=== PATIENT | female | born 2000 | race American Indian/Alaskan Native ===

== ENCOUNTER 2020-09-09 12:44 | Emergency (ER) | payer SELFPAY ==
[2020-09-09 14:37] LABS: Basophils % (Auto) 0.4 % (0.0-1.8); Eosinophils # (Auto) 0.1 K/mm3 (0.0-0.4); Eosinophils % (Auto) 0.6 % (0.0-4.3); Hematocrit 41.1 % (30.3-42.9); Lymphocytes % (Auto) 35.5 % (13.4-35.0); Mean Corpuscular HGB Conc 34 % (30-34); Mean Corpuscular Volume 92 fl (79-97); Monocytes # (Auto) 0.5 K/mm3 (0.0-0.8); Platelet Count 296 K/mm3 (140-440); Red Blood Count 4.48 M/mm3 (3.65-5.03); Red Cell Distribution Width 12.3 % (13.2-15.2)
[2020-09-09 14:56] LABS: BUN/Creatinine Ratio 6; Blood Urea Nitrogen 5 mg/dL (7-17); Calcium 9.3 mg/dL (8.4-10.2); Hemolysis Index 8
--- NOTE | 2020-09-09 19:04 | Emergency Department Report ---
<CRISTOBAL NEWBY III - Last Filed: 09/09/20 21:33> ED Psych HPI - General Chief Complaint: Psych Stated Complaint: MENTAL HEALTH Time Seen by Provider: 09/09/20 19:00 Source: patient Mode of arrival: Ambulatory - History of Present Illness Initial Comments: Patient is a 20-year-old female that presents emergency room with complaints of suicidal ideations, self-harm and depression anxiety. Patient states she has had depression anxiety for many years. Patient states she is feeling really depressed lately. Patient states that her father came to her house and saw the cuts on her arm prior to the hospital to be evaluated. Patient states that she is a cutter and she gets emotional relief when she cuts her forearms. Patient states she was not cutting her forearms with the intent of killing herself. Patient states lately she has been having suicidal ideations but does not have a plan. Patient states she has a history of a suicide attempt by cutting her wrist about 2 or 3 years ago. Patient states she has been very emotional. Patient states has been looking to get some psychiatric help but has not seen a psychiatrist. Patient denies recent travel. Patient denies recent international travel. Patient denies exposure to the novel coronavirus. Patient denies sick contacts. Patient denies fever and chills. Patient denies cough. Patient denies diarrhea. Patient denies coming in contact with anybody with symptoms of the novel coronavirus. MD Complaint: suicidal ideation, feels depressed -: Sudden Associated Psychiatric Symptoms: depression, suicidal ideation, racing thoughts History of same: Yes Quality: constant Improves With: none Worsens With: none Context: significant life stressor Associated Symptoms: denies: confusion, headache, shortness of breath, nausea, vomiting, syncope, insomnia If Self Harm: admits thoughts of - Related Data Previous Rx's Medication Instructions Recorded Last Taken Type Sulfamethoxazole/Trimethoprim 1 each PO BID 10 Days #20 tablet 09/09/20 Unknown Rx [Bactrim DS TAB] Sertraline [Zoloft] 25 mg PO QDAY #30 tab 09/10/20 Unknown Rx hydrOXYzine PAMOATE [Vistaril] 25 mg PO BID PRN #60 capsule 09/10/20 Unknown Rx traZODone [Desyrel] 50 mg PO QHS #30 tab 09/10/20 Unknown Rx Allergies Allergy/AdvReac Type Severity Reaction Status Date / Time No Known Allergies Allergy Unverified 09/09/20 12:58 ED Review of Systems Constitutional: denies: chills, fever Eyes: denies: eye pain, eye discharge, vision change ENT: denies: ear pain, throat pain Respiratory: denies: cough, shortness of breath, wheezing Cardiovascular: denies: chest pain, palpitations Endocrine: no symptoms reported Gastrointestinal: denies: abdominal pain, nausea, diarrhea Genitourinary: denies: urgency, dysuria, discharge Musculoskeletal: denies: back pain, joint swelling, arthralgia Skin: denies: rash, lesions Neurological: denies: headache, weakness, paresthesias Psychiatric: as per HPI, anxiety, depression, suicidal thoughts. denies: auditory hallucinations, visual hallucinations, homicidal thoughts Hematological/Lymphatic: denies: easy bleeding, easy bruising ED Past Medical Hx - Past Medical History Previous Medical History?: No - Surgical History Past Surgical History?: No - Medications Home Medications: Home Medications Medication Instructions Recorded Confirmed Last Taken Type Sulfamethoxazole/Trimethoprim 1 each PO BID 10 Days #20 tablet 09/09/20 Unknown Rx [Bactrim DS TAB] Sertraline [Zoloft] 25 mg PO QDAY #30 tab 09/10/20 Unknown Rx hydrOXYzine PAMOATE [Vistaril] 25 mg PO BID PRN #60 capsule 09/10/20 Unknown Rx traZODone [Desyrel] 50 mg PO QHS #30 tab 09/10/20 Unknown Rx ED Physical Exam - General Limitations: No Limitations General appearance: alert, in no apparent distress - Head Head exam: Present: atraumatic, normocephalic - Eye Eye exam: Present: normal appearance - ENT ENT exam: Present: mucous membranes moist - Neck Neck exam: Present: normal inspection - Respiratory Respiratory exam: Present: normal lung sounds bilaterally. Absent: respiratory distress - Cardiovascular Cardiovascular Exam: Present: regular rate, normal rhythm. Absent: systolic murmur, diastolic murmur, rubs, gallop - GI/Abdominal GI/Abdominal exam: Present: soft, normal bowel sounds - Extremities Exam Extremities exam: Present: other (Superficial abrasions and lacerations noted to the right forearm. None of the lacerations or abrasions are deep enough to require sutures.) - Back Exam Back exam: Present: normal inspection - Neurological Exam Neurological exam: Present: alert, oriented X3 - Psychiatric Psychiatric exam: Present: depressed, flat affect - Skin Skin exam: Present: warm, dry, normal color, abrasion, other (Superficial abrasions and lacerations noted to the right forearm. Bleeding is controlled. Sterile dressing reapplied after evaluation.). Absent: rash ED Course - Reevaluation(s) Reevaluation #1: Patient is cooperative. During initial evaluation, the patient became emotional when I discussed suicide and suicidal ideations. We will have mental health see the patient. 09/09/20 19:03 Reevaluation #2: I discussed the case with mental health and the mental health wants the patient placed on a 1013 for suicide ideation with a plan. Mother states that they had a long discussion and the patient finally came clean and said that she was actually trying to hurt herself and commit suicide and that the cutting is a suicide attempt. Patient placed on a 1013. Order placed in the system. 09/09/20 20:03 Reevaluation #3: Patient is medically cleared. Patient will remain in the ER as an ER hold and on a 1013 until the patient is cleared from a psychiatric standpoint from our mental health and psychiatry team. 09/09/20 21:34 ED Medical Decision Making - Lab Data Result diagrams: 09/09/20 14:24 09/09/20 14:24 - Medical Decision Making Patient is a 20-year-old female that presents emergency room with complaints of cutting her forearm. Patient initially said that she was only cutting her forearm because she is a cutter. However while discussing with the patient the patient became emotional every time I brought up the idea of suicidal ideations and the patient spoke with mental health spa manager/esthetician and finally told her that she was having suicidal ideations and that her self-harm was a suicide attempt. Patient was then placed on a 1013. Patient had labs done which were essentially unremarkable except for a UTI. Patient given oral antibiotics. Patient is medically cleared and patient's final disposition will come from our psychiatry team. - Differential Diagnosis Depression, suicidal ideation, self harm ED Disposition Clinical Impression: Self-harming behavior UTI (urinary tract infection) Qualifiers: Urinary tract infection type: acute cystitis Hematuria presence: with hematuria Qualified Code(s): N30.01 - Acute cystitis with hematuria Disposition: [id number]/TX-[id number] PSY HOSP/PSY UNIT Is pt being admited?: No Does the pt Need Aspirin: No Condition: Stable Instructions: Urinary Tract Infection, Adult, [id number], Self-Harming Behavior Information Additional Instructions: Professional and Agency Contacts To help [facility] (07/01) [place] Crisis Line: Suicide Prevention Line: Crisis Text Line: Text START to 514359 Emergency: 911 Outpatient COMMUNITY Behavioral Health Resources: [place]: [facility] [address], [place] [address] [place]: [facility] [address] [place] [address] Saturday thru Saturday - 8am - 5pm Call to schedule an assessment for mental health and substance abuse programs [facility] Address: [address] [place] [address] Saturday thru Saturday- 7am-2pm [facility] Address: [address] [place] [address] Saturday thru Saturday: 8:30AM-5PM OUTPATIENT MENTAL HEALTH RESOURCES [facility], [facility] Joana Syed MD: [address] [place] [address], [address] [place] [address] [place] [address] [place] [facility]: [facility] [address] [place] [address] [place] [address] [phone] [facility]: [facility]: [address] [facility] [address] [facility] [place] [address] [facility] [address] [place] [facility]: Forest Carrizales MD: [address] [facility] [id number] [facility]: [address] [place] [address] [phone] [place] CRISIS AND ACCESS LINE: Prescriptions: traZODone [Desyrel] 50 mg PO QHS #30 tab Sulfamethoxazole/Trimethoprim [Bactrim DS TAB] 1 each PO BID 10 Days #20 tablet hydrOXYzine PAMOATE [Vistaril] 25 mg PO BID PRN #60 capsule PRN Reason: Anxiety Sertraline [Zoloft] 25 mg PO QDAY #30 tab Referrals: PRIMARY CARE, [Primary Care Provider] - 2-3 Days Time of Disposition: 21:36 <CHRIS PATE - Last Filed: 09/10/20 13:18> ED Review of Systems ROS: Stated complaint: MENTAL HEALTH Other details as noted in HPI ED Course Vital Signs 09/09/20 09/09/20 12:58 19:15 Temperature 98.9 F 98 F Pulse Rate 64 82 Respiratory 20 18 Rate Blood Pressure 136/91 122/84 O2 Sat by Pulse 100 99 Oximetry - Reevaluation(s) Reevaluation #4: 09/10/20 13:17 Patient seen and evaluated by psychiatry. 1013 rescinded. They have determined that patient is stable for discharge home. I spoke with patient and confirmed that she denies any suicidal ideations. Patient states she is eager to be discharged and started on her therapy. Will discharge at this time. ED Medical Decision Making - Lab Data Result diagrams: 09/09/20 14:24 09/09/20 14:24 Critical care attestation.: If time is entered above; I have spent that time in minutes in the direct care of this critically ill patient, excluding procedure time.
[2020-09-09 20:25] LABS: Bacteria,Urine 1+ /HPF (Negative); Bilirubin,Urine NEG (Negative); Blood,Urine SM (Negative); Color,Urine Yellow (Yellow); Mucus,Urine 3+ /HPF; Urobilinogen,Urine < 2.0 mg/dL (<2.0)
[2020-09-09 20:30] LABS: Amphetamine Screen,Urine Negative; Benzodiazepines Screen,Urine Negative; Cocaine Screen,Urine Negative; Methadone Screen,Urine Negative; Opiate Screen,Urine Negative
[2020-09-09 20:45] LABS: Cannabinoid Screen,Urine Positive
[2020-09-09 20:53] VITALS: BP 122/84
[2020-09-09] MEDS ORDERED: LORazepam 1 MG TAB PO ONE (21:03)
[2020-09-10 01:09] LABS: HCG Qualitative,Urine Negative (Negative)
--- NOTE | 2020-09-10 12:00 | Consultation ---
History of Present Illness - Reason for Consult Consult date: 09/10/20 Reason for consult: self mutilator - History of Present Psychiatric Illness Per ED Note: Patient is a 20-year-old female that presents emergency room with complaints of suicidal ideations, self-harm and depression anxiety. Patient states she has had depression anxiety for many years. Patient states she is feeling really depressed lately. Patient states that her father came to her house and saw the cuts on her arm prior to the hospital to be evaluated. Patient states that she is a cutter and she gets emotional relief when she cuts her forearms. Patient states she was not cutting her forearms with the intent of killing herself. Patient states lately she has been having suicidal ideations but does not have a plan. Patient states she has a history of a suicide attempt by cutting her wrist about 2 or 3 years ago. Patient states she has been very emotional. Patient states has been looking to get some psychiatric help but has not seen a psychiatrist. During my interview with 20y/o Carol Taylor, she is sitting up in bed. She is calm, cooperative and polite. When asked what brought her to the hospital, she says "depression, and I'm a cutter." The patient says she's been cutting since she was "about 9." She says "I don't do this to kill myself. It just relieves pain and stress." She says "I'm not suicidal, although I have had thoughts before on and off." The patient also denies any fear of harming herself or anyone if she was to discharge home. The patient says her stressor is her mom and her sister. She says she no longer lives in the home but states her mom says hurtful things sometimes. The patient says "I've been wanting to see a therapist but my mom never took me to get help." She says, "I just need counseling where I can openly discuss my feelings." The patient says she "never really knew where to go to get resources, so this is really why I needed to come here because I need resources for therapy and medication." She denies any illicit drug use outside of THC, alcohol or nicotine. She says she sleeps at times and at times she doesn't sleep well. The patient states she "feels much better talking to you and getting out my feelings." Spoke to the patient's "." She says the patient doesn't have a good relationship with her mother and allows that to make her upset over the things her mom says. She says the patient does cut but she doesn't do it to , she just needs help with her feelings. She says she is comfortable with the person going home with her and the patient's dad. PAST PSYCHIATRIC HISTORY Diagnoses: Depression, self mutilator Suicide attempts or Self-harm behavior: Yes Prior psychiatric hospitalizations: Denies Substance Abuse history: Denies Previous psychiatric medications tried: Denies Outpatient treatment: Denies PAST MEDICAL HISTORY: None reported Family Psychiatric History: None reported or documented SOCIAL HISTORY Marital Status: "" Living Arrangements: With dad and significant other Employment Status: Unemployed Access to guns/weapons: Denies Education: high school History of Abuse: Denies Legal History: None reported REVIEW OF SYSTEMS Constitutional: Negative for weight loss ENT: Negative for stridor Respiratory: Negative for cough or hemoptysis All other systems reviewed and are negative MENTAL STATUS EXAMINATION General Appearance and Behavior: Age appropriate, good hygiene, not wearing appropriate clothes, good eye contact, calm, cooperative and polite Cooperation: cooperative Psychomotor Behavior: Psychomotor normal Mood: "much better" Affect and affective range: congruent with stated mood Thought Process: Goal directed Thought Content: optimism Speech: normal rate and volume Suicidal Ideation: Denies Homicidal Ideation: Denies Hallucinations: Denies Delusions: None elicited Impulse Control: Impaired Insight and Judgment: Limited Memory: Limited Attention: Divided attention impaired Orientation: Alert Assessment and Plan (1) Major Depressive Disorder (2) Generalized Anxiety Disorder Treatment Plan D/c 1013 Zoloft 25mg po daily Vistaril 25mg po BID prn anxiety Trazodone 50mg po qhs The patient is to get first dose of meds prior to leaving. Benefits and possible SE were explained to patient. She verbalizes understanding. Risks, benefits and alternatives of medications discussed with the patient, questions answered and consent obtained from patient. PSYCHOTHERAPY: Supportive psychotherapy provided MEDICAL: Per primary team DELIRIUM PRECAUTIONS: Please re-orient patient frequently, keep lights on during the day, and minimize benzodiazepines and opiates as these medications could worsen patient's confusion. MERCURY CRACKING TESTER: Defer to primary DISPOSITION: Do Not Recommend acute inpatient psychiatric hospitalization at this time. The elevator tender is to give the patient resources for CBT, psychiatry and medication assistance programs. She is to follow up with outpatient psych or primary in 7 to 14 days upon discharge FOLLOW-UP: Will sign off The elevator tender to give the patient safety plan, and resources. Thank you for the consult. Please contact with any questions and/or concerns Case discussed with Dr. Dolan who agrees with current disposition Medications and Allergies Allergies Allergy/AdvReac Type Severity Reaction Status Date / Time No Known Allergies Allergy Unverified 09/09/20 12:58 Home Medications Medication Instructions Recorded Confirmed Last Taken Type Sulfamethoxazole/Trimethoprim 1 each PO BID 10 Days #20 tablet 09/09/20 Unknown Rx [Bactrim DS TAB] Sertraline [Zoloft] 25 mg PO QDAY #30 tab 09/10/20 Unknown Rx hydrOXYzine PAMOATE [Vistaril] 25 mg PO BID PRN #60 capsule 09/10/20 Unknown Rx traZODone [Desyrel] 50 mg PO QHS #30 tab 09/10/20 Unknown Rx Active Meds: Active Medications Lorazepam (Lorazepam 1 Mg Tab) 1 mg PO ONCE ONE Stop: 09/09/20 21:04 Last Admin: 09/09/20 21:14 Dose: 1 mg Documented by: Mental Status Exam - Vital signs Last Vital Signs Temp 98 F 09/09/20 19:15 Pulse 82 09/09/20 19:15 Resp 18 09/09/20 19:15 BP 122/84 09/09/20 19:15 Pulse Ox 99 09/09/20 19:15 Results Result Diagrams: 09/09/20 14:24 09/09/20 14:24 Abnormal lab results 09/09/20 09/09/20 09/09/20 Range/Units 14:24 14:24 14:24 RDW (13.2-15.2) % Lymph % (Auto) (13.4-35.0) % Chloride 107.2 H (98-107) mmol/L BUN 5 L (7-17) mg/dL Urine WBC (Auto) (0.0-6.0) /HPF Salicylates < 0.3 L (2.8-20.0) mg/dL Acetaminophen 5.0 L (10.0-30.0) ug/mL 03/26/21 03/26/21 Range/Units 14:24 Unknown RDW 12.3 L (13.2-15.2) % Lymph % (Auto) 35.5 H (13.4-35.0) % Chloride (98-107) mmol/L BUN (7-17) mg/dL Urine WBC (Auto) 16.0 H (0.0-6.0) /HPF Salicylates (2.8-20.0) mg/dL Acetaminophen (10.0-30.0) ug/mL All other labs normal.
[2020-09-10] MEDS ORDERED: hydrOXYzine PAMOATE 25 MG CAP PO ONE (12:15)
[2020-09-10] MEDS ORDERED: SERTRALINE 25 MG TAB PO SCH (13:00)
== END 2020-09-10 13:30 ==
LOC: ED 12:44
DX: N39.0 Urinary tract infection, site not specified (principal); F32.9 Major depressive disorder, single episode, unspecified; F41.9 Anxiety disorder, unspecified; Z79.899 Other long term (current) drug therapy; Z20.822 Contact with and (suspected) exposure to COVID-19
CPT/HCPCS: 36415; 80048; 80307; 81001; 81025; 85025; 87076; 87086; 87186; 99284; Q0177; U0003; 80320; G0480